=== PATIENT | female | born 1940 | race Caucasian/White ===

== ENCOUNTER 2019-04-01 15:54 | Inpatient (IN) ==
[2019-04-01 16:39] LABS: POC Blood Urea Nitrogen 19 mg/dl (8-23); POC CO2 26 mmol/L (22-30); POC Calcium, Ionized 1.31 mmol/L (1.16-1.32); POC Chloride 90 mmol/L (96-108); POC Creatinine 0.8 mg/dl (0.6-1.1); POC Glucose, Random 94 mg/dL (70-105); POC Potassium 4.6 mmol/L (3.3-5.1); POC Sodium 123 mmol/L (133-145)
[2019-04-01] MEDS ORDERED: ceFAZolin 2 GM in DEXTROSE 5% IN WATER 50 ML IV SCH (17:00)
[2019-04-01 17:17] LABS: Basophils # (Auto) 0 K/mcL (0.0-0.3); Basophils % (Auto) 0.1 % (0.0-2.0); Eosinophils # (Auto) 0 K/mcL (0.0-0.7); Eosinophils % (Auto) 0.2 % (0.0-7.0); Granulocytes % (Auto) 87.9 % (38.0-78.0); Hematocrit 38.5 % (36.0-48.0); Hemoglobin 12.4 g/dL (12.0-15.0); Lymphocytes # (Auto) 0.8 K/mcL (1.5-4.8); Mean Cell Volume 96.8 fL (80.0-100.0); Mean Corpuscular HGB Conc 32.1 g/dL (31.0-36.0); Mean Platelet Volume 7.3 fL (7.4-10.4); Monocytes % (Auto) 6.8 % (1.0-12.0); Platelet Count 455 K/mcL (140-440); RBC 3.98 M/mcL (4.00-5.20); Red Cell Distribution Width 24.1 % (11.5-14.5); WBC 15.2 K/mcL (4.5-11.0)
[2019-04-01] MEDS ORDERED: LIDOCAINE HCL/PF 100 MG/5 ML SYRINGE IV ONE (17:22)
[2019-04-01] MEDS ORDERED: SUCCINYLCHOLINE 20 MG/ML ML IV ONE (17:22)
[2019-04-01] MEDS ORDERED: fentaNYL 100 MCG/2 ML VIAL IV ONE ×2 (17:22→19:02)
[2019-04-01] MEDS ORDERED: DEXAMETHASONE 10 MG/ML VIAL IV ONE (17:22)
[2019-04-01] MEDS ORDERED: PROPOFOL 200 MG/20 ML VIAL IV ONE (17:22)
[2019-04-01] MEDS ORDERED: ONDANSETRON 4 MG/2 ML VIAL IV ONE (17:22)
[2019-04-01 17:35] LABS: Blood Urea Nitrogen 18 mg/dl (8-23); C-Reactive Protein 14.1 mg/dl (0.0-0.8); Calcium 10.2 mg/dl (8.6-10.4); Carbon Dioxide 24 mmol/L (22-30); Glomerular Filtration Rate 72; Glucose 93 mg/dL (70-105)
[2019-04-01 17:48] LABS: Chloride 87 mmol/L (96-108)
[2019-04-01] MEDS ORDERED: NALOXONE HCL 0.4 MG/ML VIAL IV PRN (18:12)
[2019-04-01] MEDS ORDERED: ACETAMINOPHEN 1,000 MG/100 ML BOTTLE IV ONE ×2 (18:12→19:06)
[2019-04-01] MEDS ORDERED: LACTATED RINGERS 250 ML IV PRN (18:12)
[2019-04-01] MEDS ORDERED: BENZOCAINE/MENTHOL 1 LOZENGE PO PRN ×2 (18:12→18:45)
[2019-04-01] MEDS ORDERED: FLUMAZENIL 0.1 MG/ML ML IV PRN (18:12)
[2019-04-01] MEDS ORDERED: diphenhydrAMINE 50 MG/ML VIAL IV PRN (18:12)
[2019-04-01] MEDS ORDERED: IPRATROPIUM/ALBUTEROL 3 ML AMPUL.NEB NEB PRN (18:12)
[2019-04-01] MEDS ORDERED: ONDANSETRON 4 MG/2 ML VIAL IV PRN ×3 (18:12→20:14)
[2019-04-01] MEDS ORDERED: PROMETHAZINE 25 MG/ML VIAL IV PRN (18:12)
[2019-04-01] MEDS ORDERED: MEPERIDINE 25 MG/ML SYRINGE IV PRN (18:12)
[2019-04-01] MEDS ORDERED: LACTATED RINGERS 1,000 ML IV SCH (18:15)
[2019-04-01] MEDS ORDERED: HYDROmorphone 2 MG/ML VIAL IV PRN ×3 (18:45→20:18)
--- NOTE | 2019-04-01 18:56 | Brief Operative Note ---
Date of procedure: 04/01/19 Pre-op diagnosis: R Forearm Volar Abcess, R Forearm Suppurative Flexor Tenosynovitis Post-op diagnosis: same Procedure: 1. Debridement and irrigation right forearm volar abcess 2. Debridement and irrigation with tenosynovectomy right wrist and forearm flex or tendons Grafts/Implants: No Anesthesia: GETA Findings: As above Complications: none Surgeon: Braulio Mcgraw Estimated blood loss (cc): 11 Tourniquet Time (Minutes): 53 Specimens Removed/Pathology: other (Aerobic and anaerobic cultures right wrist flexor tendon sheath) Condition: stable Disposition: PACU
[2019-04-01] MEDS: fentaNYL 100 MCG/2 ML VIAL IV PRN ×4 (19:02→19:25)
[2019-04-01] MEDS ORDERED: HYDROmorphone 2 MG/ML VIAL ONE (19:17)
[2019-04-01] MEDS: ceFAZolin 1 GM VIAL IV SCH (20:04)
[2019-04-01] MEDS ORDERED: POLYETHYLENE GLYCOL 3350 17 GM PACKET PO PRN (20:14)
[2019-04-01] MEDS ORDERED: MELATONIN 3 MG TABLET PO PRN (20:14)
[2019-04-01] MEDS ORDERED: ACETAMINOPHEN 650 MG/65 ML BOTTLE IV PRN (20:14)
[2019-04-01] MEDS ORDERED: POTASSIUM CHLORIDE 20 MEQ PACKET PO PRN (20:14)
[2019-04-01] MEDS ORDERED: MAGNESIUM SULFATE 2 GM/50 ML BAG IV PRN (20:14)
[2019-04-01] MEDS ORDERED: ACETAMINOPHEN 325 MG TABLET PO PRN (20:14)
[2019-04-01] MEDS ORDERED: VANCOMYCIN PER PHARMACY IV SCH (20:15)
--- NOTE | 2019-04-01 20:15 | Internal Medicine Consult Note ---
Medical - CN: HPI - Data of Consult Consult date: 04/01/19 Requesting physician: Braulio Mcgraw Primary Care Provider: Annette Moya MD - Consult Narrative Reason for consult: Management of med issues History of present illness: Ms. Velazquez is a 78 year old F with known history of atrial fibrillation currently on amiodarone/anticoagulation long history of DJD who underwent right wrist steroid injection around 10 to 12 days ago. Shortly thereafter patient started noticing increasing redness around the little finger and swelling around the wrist. She went to [facility] and was subsequently directed to Dr. Lorenz's office for further evaluation. She was thereafter seen by and with suspicion of tenosynovitis/septic arthritis patient underwent right forearm volar abscess debridement irrigation/tenosynovectomy right wrist and forearm flexor tendons. Postoperatively hospitalist service was consulted for management of medical issues including history of HTN/A. fib/anticoagulation. Patient was seen postop. Doing well. Minimal postoperative pain. Denies headache photophobia. She denies recent fever chills, diarrhea, skin rash or joint pain. Symptoms were progressive in nature with increasing pain swelling around the right wrist along with difficulty using hand with increasing pain on movement. Patient lives with her and 6 miles of [facility] Review of systems A 10 point review of system was performed and is negative except was discussed above CC: Braulio Mcgraw Medical - CN: PMH Medical history: Atrial fibrillation Hyperlipidemia Degenerative joint disease Hypothyroidism Hypertension GERD restless leg syndrome [place] chorioretinopathy Pertinent family history: Unremarkable Social history: No history of smoking Occasional alcohol and lives with her Works at the [employer] - CN: Meds Home Medications Medication Instructions Recorded Confirmed Type Apixaban [Eliquis] 5 mg PO BID 04/01/19 04/01/19 History Atorvastatin [Lipitor] 20 mg PO DAILY 04/01/19 04/01/19 History HYDROcodone/APAP 5/325MG [[place] 1 - 2 tab PO Q6HP PRN 04/01/19 04/01/19 History 5-325Mg] Hydrocodone/APAP 7.5/325Mg [[place] 1 - 2 tab PO Q4-6HP PRN 04/01/19 04/01/19 History 7.5-325Mg] Levothyroxine [Synthroid] 50 mcg PO DAILY 04/01/19 04/01/19 History Lisinopril [Zestril] 20 mg PO QHS 04/01/19 04/01/19 History Methotrexate Sodium [Methotrexate] 20 mg PO WEEKLY 04/01/19 04/01/19 History Pramipexole [Mirapex] 0.5 mg PO HS 04/01/19 04/01/19 History RX: Amiodarone HCl [Cordarone] 100 mg PO AC 04/01/19 04/01/19 History RX: Folic Acid 1 mg PO DAILY 04/01/19 04/01/19 History RX: Omeprazole 20 mg PO BID 04/01/19 04/01/19 History Spironolactone [Aldactone] 25 mg PO DAILY 04/01/19 04/01/19 History methylPREDNISolone [Medrol] 4 mg PO DAILY 04/01/19 04/01/19 History Allergies Allergy/AdvReac Type Severity Reaction Status Date / Time No Known Drug Allergies Allergy Verified 04/01/19 16:19 Medical - CN: Exam - Constitutional Vitals: Temp Pulse Resp BP Pulse Ox 98.1 F 64 24 H 163/79 96 04/01/19 19:48 04/01/19 19:48 04/01/19 19:48 04/01/19 19:48 04/01/19 19:48 General appearance: no acute distress Exam: Alert oriented Head normocephalic Oral cavity dry No ear nose discharge Eye movement symmetrical Neck lymphadenopathy S1-S2 occasionally iregular rhythm Diminished breath sounds bases Abdomen soft nontender Skin no suspicious lesion Psych alert cooperative Lower extremity no cyanosis clubbing no joint swelling, right upper extremity postoperative dressing Neuro nonfocal Medical - CN: Result - Labs CBC & Chem 7: 04/02/19 04:35 04/02/19 04:35 Labs: Short CBC 04/01/19 Range/Units 16:46 WBC 15.2 H (4.5-11.0) K/mcL Hgb 12.4 (12.0-15.0) g/dL Hct 38.5 (36.0-48.0) % Plt Count 455 H (140-440) K/mcL BMP 04/01/19 16:46 Sodium 122 L Potassium 4.8 Chloride 87 L Carbon Dioxide 24 BUN 18 Creatinine 0.8 Glucose 93 Calcium 10.2 Medical - CN: A/P (1) Sepsis Status: Acute Assessment and plan: * Sepsis secondary to tenosynovitis with WBC >15,000. Await intraoperative cultures. Continue antibiotic coverage. * Septic tenosynovitis status post irrigation debridement. 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 Amanda ry 4 sodium check/urine and serum osmolality. If consistent with SIADH will start free water restriction * Hypertension restart lisinopril/spironolactone * Hypothyroidism continue thyroxine * Pain management on as needed opioid * Atrial fibrillation continue amiodarone/apixaban for CVA prophylaxis * Hyperlipidemia's on statin * Restless leg syndrome continue pramipexole * GERD continue PPI * Chorioretinopathy on methotrexate at home * Full code * Prophylaxis apixaban plan * Restart prior home medications * Extend antibiotic coverage with vancomycin until cultures resulted * Every 6 sodium checks * Urine and serum osmolarity * Anticoagulation with apixaban * Overall high complexity consult
[2019-04-01] MEDS ORDERED: HYDROCODONE/APAP 7.5/325MG TABLET PO PRN (20:18)
[2019-04-01] MEDS ORDERED: METHOTREXATE SODIUM 2.5 MG TABLET PO SCH (20:30)
[2019-04-01] MEDS: SENNOSIDES/DOCUSATE SODIUM 1 TAB TABLET PO SCH (21:20)
[2019-04-01] MEDS: DOCUSATE SODIUM 100 MG CAPSULE PO SCH (21:20)
[2019-04-01] MEDS: 0.9 % SODIUM CHLORIDE 1,000 ML IV SCH (21:23)
[2019-04-01] MEDS: PRAMIPEXOLE 0.25 MG TABLET PO SCH (21:24)
[2019-04-01] MEDS: LISINOPRIL 20 MG TABLET PO SCH (21:24)
[2019-04-01] MEDS: VANCOMYCIN 1,000 MG in 0.9 % SODIUM CHLORIDE 250 ML IV SCH (21:24)
[2019-04-01] MEDS: 0.9 % SODIUM CHLORIDE 10 ML SYRINGE IV SCH (21:24)
[2019-04-01] MEDS: KETOROLAC 15 MG/ML VIAL IV PRN (21:32)
[2019-04-01] MEDS ORDERED: 0.9 % SODIUM CHLORIDE 10 ML SYRINGE IV SCH (22:00)
[2019-04-02] MEDS: HYDROCODONE/APAP 7.5/325MG TABLET PO PRN ×4 (00:23→19:15)
[2019-04-02] MEDS: ceFAZolin 1 GM VIAL IV SCH (03:58)
[2019-04-02] MEDS: 0.9 % SODIUM CHLORIDE 10 ML SYRINGE IV SCH ×3 (04:01→20:39)
[2019-04-02 05:41] LABS: Hematocrit 37.9 % (36.0-48.0); Hemoglobin 12.3 g/dL (12.0-15.0); Mean Cell Volume 97.1 fL (80.0-100.0); Mean Corpuscular HGB Conc 32.4 g/dL (31.0-36.0); Mean Platelet Volume 7.3 fL (7.4-10.4); Platelet Count 438 K/mcL (140-440); Red Cell Distribution Width 23.7 % (11.5-14.5); WBC 15.4 K/mcL (4.5-11.0)
[2019-04-02 06:39] LABS: Bilirubin,Direct < 0.2 mg/dL (0.0-0.3)
[2019-04-02 06:41] LABS: ALT/SGPT 22 U/l (0-40); AST/SGOT 19 U/l (0-37); Albumin 2.7 gm/dL (3.2-5.2); Albumin/Globulin Ratio 0.8 (1.0-2.3); Alkaline Phosphatase 94 U/L (39-117); Bilirubin,Total 0.3 mg/dL (0.0-1.0); Blood Urea Nitrogen 18 mg/dl (8-23); C-Reactive Protein 19.3 mg/dl (0.0-0.8); Carbon Dioxide 20 mmol/L (22-30); Chloride 91 mmol/L (96-108); Globulin 3.3 gm/dL (2.2-3.7); Glomerular Filtration Rate 72; Glucose 122 mg/dL (70-105); Lactate Dehydrogenase 210 U/L (94-250); Phosphorous 3.7 mg/dL (2.7-4.5); Triglycerides 46 mg/dl (<150); Uric Acid 3.1 mg/dL (2.5-8.0)
[2019-04-02 06:46] LABS: Anisocytosis 2+ (NONE SEEN); Lymphocytes % 4 % (15-49); Monocytes % (Manual) 1 % (1-12); Platelet Estimate NORMAL (NORMAL); RBC Morphology ABNORM (NORMAL); Segmented Neutrophils % 95 % (38-78)
[2019-04-02] MEDS: LEVOTHYROXINE 50 MCG TABLET PO SCH (07:27)
[2019-04-02] MEDS: AMIODARONE HCL 200 MG TABLET PO SCH ×3 (07:27→16:52)
[2019-04-02] MEDS: OMEPRAZOLE 20 MG CAPSULE PO SCH ×2 (07:27→16:52)
--- NOTE | 2019-04-02 07:51 | Operative Note ---
DATE OF OPERATION: 04/01/2019 PREOPERATIVE DIAGNOSES: 1. Right volar wrist and forearm abscess. 2. Right wrist and forearm suppurative flexor tenosynovitis. POSTOPERATIVE DIAGNOSES: 1. Right volar wrist and forearm abscess. 2. Right wrist and forearm suppurative flexor tenosynovitis. PROCEDURE: 1. Debridement and irrigation of the right volar forearm and wrist abscess. 2. Debridement and irrigation with tenosynovectomy of the right wrist and forearm flexor tendons. PRIMARY SURGEON: Braulio Mcgraw MD ANESTHESIA: General with endotracheal tube. ESTIMATED BLOOD LOSS: 11 mL DRAINS: Include 7 mm JERZY drain placed deep to the flexor tendon sheath. COMPLICATIONS: None. FINAL SPONGE COUNT: Correct. TOTAL TOURNIQUET TIME: 53 minutes. SPECIMENS: Aerobic and anaerobic cultures of the volar wrist and forearm abscess. INDICATION: The patient is a 78-year-old right hand white female with worsening pain, swelling and redness on the undersurface of her right wrist and forearm developing and worsening over the last week with us now some fevers and limited range of motion. Her physical examination demonstrates an edematous forearm and wrist with induration and erythema extending along the flexor carpi radialis tendon sheath with some bogginess and fluctuant in the volar wrist and forearm with limited range of motion. Her MRI a week ago demonstrated evidence of some synovitis around the flexor tendons, but no abscess at that time. The patient and family verbalized that they understood the proposed procedure with the associated risks and benefits and consented. DESCRIPTION OF PROCEDURE: The patient was taken to the operating room suite and placed supine on the operating room table. Next endotracheal tube anesthesia was attained. After adequate anesthesia was verified, a tourniquet was placed on the proximal aspect of her right arm and the right upper extremity was then sterilely prepped and draped in the usual fashion. The old carpal tunnel incision was identified and marked as it extended proximally in line with the flexor carpi radialis tendon sheath. After this demonstrated to be in good position, the right upper extremity was exsanguinated and the tourniquet was inflated to 280 mmHg. Next, the aforemarked incision was made beginning at the mid to proximal forearm extending distally in line with the flexor carpi ulnaris tendon sheath to the volar forearm incision. The volar wrist incision was then incised obliquely to the level of the volar wrist crease and then over the ulnar aspect of the hyperthenar crease, sharp dissection of the skin and subcutaneous tissues. Subcutaneous tissues were bluntly divided. Hemostasis was obtained with electrocautery. Blunt dissection was taken down until the volar forearm and volar wrist were identified. Next, the scar tissue was opened and there was seen to be significant purulence that drained from the wrist and forearm wound. At this time, aerobic and anaerobic cultures were obtained. Next, full-thickness flaps were developed in a medial lateral direction through the entire length of the incision. The volar forearm fascia was incised. There was seen to be significant suppurative flexor tenosynovitis involving the flexor tendons. At this time, the median nerve was identified. This was meticulously dissected from proximal to distal, removing all scar tissue and completely mobilizing the nerve. The palmar cutaneous branch was seen to be intact. The recurrent median nerve was intact as well as the digital nerves to the fingers. The ulnar artery and nerve were identified distally and preserved as well. At this time, a complete tenosynovectomy was completed through the whole wrist and forearm of all the flexor tendons to include the flexor carpi radialis and flexor carpi ulnaris and the flexor tendons of the common and superficialis. After this was completed, copious irrigation with a liter of sterile saline solution, repeat debridement, repeat irrigation with a second liter of sterile saline solution, repeat debridement, and debridement was taken up into the palmar aspect of the hand and to the more proximal forearm. Again, another irrigation with a third liter of sterile saline solution, repeat debridement, and a final liter of sterile saline solution and a final debridement. At this time, there was seen to be complete removal of all necrotic and/or foreign material. There was seen to be removal of all purulent material as well up into the forearm and into the palm of the hand. The median nerve was seen to be intact. All flexor tendons were seen to be intact to the fingers, thumb and the wrist. The radial and ulnar arteries were intact. After the final irrigation, a 7 mm JERZY drain was then placed deep to the flexor tendons were brought out over the volar forearm after a krupa incision was made. Next, the skin was then closed with 3-0 nylon in interrupted sutures. The tourniquet was released. The wrist, hand, and fingers were seen to pink up very nicely. Sterile Xeroform was placed over the drain site and the incision site. A bulky forearm, wrist, and hand dressing were applied and a volar splint was applied. The patient was then awakened and transferred to the [facility] and to the recovery room in stable condition. The patient tolerated the procedure well. Estimated blood loss was 11 mL. Drains included a 7 mm JERZY drain on self-suction. Complications were none. Final sponge count was correct. There was a total tourniquet time of 53 minutes. SPECIMENS: Include aerobic/anaerobic cultures of the volar forearm and wrist mass. SRJose M:marii Job ID: [id number] Doc ID: [id number] Braulio Mcgraw MD
[2019-04-02] MEDS: APIXABAN 5 MG TABLET PO SCH ×2 (08:04→20:39)
[2019-04-02] MEDS: DOCUSATE SODIUM 100 MG CAPSULE PO SCH ×2 (08:04→20:39)
[2019-04-02] MEDS: ATORVASTATIN 20 MG TABLET PO SCH (08:04)
[2019-04-02] MEDS: FOLIC ACID 1 MG TABLET PO SCH (08:05)
[2019-04-02] MEDS: MULTIVIT,THER IRON,CA,FA & MIN 1 TABLET PO SCH (08:05)
[2019-04-02] MEDS: VANCOMYCIN 1,000 MG in 0.9 % SODIUM CHLORIDE 250 ML IV SCH (08:06)
[2019-04-02] MEDS ORDERED: SPIRONOLACTONE 25 MG TABLET PO SCH (09:00)
--- NOTE | 2019-04-02 10:11 | Internal Med Progress Note ---
Medical - PN: Subj Patient information: Note initiated : 04/02/19 at 10:07 am Service Date, if different from initiated Date: [] Patient: Shannon Velazquez a 78 y/o F admitted on 04/01/19 for Right I&D of Forearm Abscess and Flexor Radical . Chief Complaint: [] Interval history: Ms. Velazquez is a 78 year old F with known history of atrial fibrillation currently on amiodarone/anticoagulation long history of DJD who underwent right wrist steroid injection around 10 to 12 days ago. Shortly thereafter patient started noticing increasing redness around the little finger and swelling around the wrist. [facility] and was subsequently directed to Dr. Lorenz's office for further evaluation. She was thereafter seen by and with suspicion of tenosynovitis/septic arthritis patient underwent right forearm volar abscess debridement irrigation/tenosynovectomy right wrist and forearm flexor tendons. Postoperatively hospitalist service was consulted for management of medical issues including history of HTN/A. fib/anticoagulation. Patient was seen postop. Doing well. Minimal postoperative pain. Denies headache photophobia. She denies recent fever chills, diarrhea, skin rash or joint pain. Symptoms were progressive in nature with increasing pain swelling around the right wrist along with difficulty using hand with increasing pain on movement. Patient lives with her and 6 miles of [facility] 04/02-patient doing well. Sodium at 123. Pain much improved. White count 15,000. Cultures pending so far. Urine osmolarity pending. Hold spironolactone. Continue wound care as per orthopedics. Continue PT OT/nutrition support - Constitutional Vitals: Vital Signs Temp Pulse Resp BP Pulse Ox 98.9 F 66 18 139/74 98 04/02/19 08:00 04/02/19 08:00 04/02/19 08:00 04/02/19 08:00 04/02/19 08:00 Period Temp Pulse Resp BP Sys/Keenan Pulse Ox Last 24 Hr 97.7 F-98.9 F 61-78 16-28 120-165/54-98 95-99 Intake and Output 04/01/19 04/02/19 04/02/19 21:59 05:59 13:59 Intake Total 1350 420 400 Output Total 11 1005 650 Balance 1339 -585 -250 Weight 181 lb 12.8 oz Intake & Output: Intake & Output 04/01/19 04/02/19 04/02/19 21:59 05:59 13:59 Intake Total 1350 420 400 Output Total 11 1005 650 Balance 7989 -915 -250 Weight 181 lb 12.8 oz Intake: IV 150 250 Vancomycin 1,000 mg In Sodium 250 Chloride 0.9% 250 ml @ 250 mls/ hr IV Q12H [facility] Rx#:[id number] Ancef 2 gm In Dextrose 5% in 50 Water 50 ml @ 100 mls/hr IV PREOP [facility] Rx#:[id number] Oral 170 400 IV - Manual Only 1200 Output: Drainage 5 Right Hand JERZY Drain 5 Urine Catheter Amount 500 Void Amount 500 650 Estimated Blood Loss 11 Other: Meal Nourishment/Supplement Breakfast Percent of Meal Consumed 100% 100% Feeding Ability Independent Assist with Tray Set Up Urine Appearance Clear Urine Color Dark Yellow Urine Odor Normal General appearance: no acute distress Exam: Alert oriented nonlabored breathing Nondistended abdomen Postoperative dressing No anxiety Medical - PN: Obj Da - Labs CBC & Chem 7: 04/02/19 04:35 04/02/19 04:35 Labs: Abnormal Lab Results 04/02/19 04/02/19 04/02/19 04:35 04:35 00:05 WBC 15.4 H RBC 3.90 L RDW 23.7 H Plt Count MPV 7.3 L Gran % Lymph % (Auto) Gran # Lymph # (Auto) Grant # (Auto) Seg Neutrophils % 95 H Lymphocytes % 4 L RBC Morphology Abnorm A Anisocytosis 2+ A POC Sodium Sodium 123 L 121 L Potassium 5.4 H POC Chloride Chloride 91 L Carbon Dioxide 20 L Glucose 122 H Osmolality GGT 87 H C-Reactive Protein 19.3 H Albumin 2.7 L Albumin/Globulin Ratio 0.8 L 04/01/19 04/01/19 04/01/19 16:46 16:46 16:46 WBC 15.2 H RBC 3.98 L RDW 24.1 H Plt Count 455 H MPV 7.3 L Gran % 87.9 H Lymph % (Auto) 5.0 L Gran # 13.3 H Lymph # (Auto) 0.8 L Grant # (Auto) 1.0 H Seg Neutrophils % Lymphocytes % RBC Morphology Anisocytosis POC Sodium 123 L Sodium 122 L Potassium POC Chloride 90 L Chloride 87 L Carbon Dioxide Glucose Osmolality 263 L GGT C-Reactive Protein 14.1 H Albumin Albumin/Globulin Ratio Meds: Medications Acetaminophen (Tylenol) 650 mg PO Q4-6HP PRN; Protocol PRN Reason: Per Pain Protocol/Fever > 101 Hydrocodone Bitart/Acetaminophen ([place] 7.5/325mg) 0 tab PO Q4HP PRN; Protocol PRN Reason: Per Pain Protocol Last Admin: 04/02/19 08:05 Dose: 1 tab Documented by: Amiodarone HCl (Cordarone) 100 mg PO AC [facility] Last Admin: 04/02/19 07:27 Dose: 100 mg Documented by: Apixaban (Eliquis) 5 mg PO BID [facility] Last Admin: 04/02/19 08:04 Dose: 5 mg Documented by: Atorvastatin Calcium (Lipitor) 20 mg PO DAILY [facility] Last Admin: 04/02/19 08:04 Dose: 20 mg Documented by: Docusate Sodium (Colace) 100 mg PO BID [facility] Last Admin: 04/02/19 08:04 Dose: 100 mg Documented by: Folic Acid (Folic Acid) 1 mg PO DAILY [facility] Last Admin: 04/02/19 08:05 Dose: 1 mg Documented by: Hydromorphone HCl (Dilaudid) 0 mg IV Q2HP PRN; Protocol PRN Reason: Per Pain Protocol Sodium Chloride (Sodium Chloride 0.9%) 1,000 mls @ 50 mls/hr IV .Q20H [facility] Stop: 04/04/19 08:14 Last Admin: 04/01/19 21:23 Dose: 50 mls/hr Documented by: Acetaminophen (Ofirmev) 650 mg in 65 mls @ 130 mls/hr IV Q6HP PRN; Protocol PRN Reason: Per Pain Protocol/Fever > 101 Magnesium Sulfate (Magnesium Sulfate) 2 gm in 50 mls @ 50 mls/hr IV UD PRN PRN Reason: MG = or < 1.7 Vancomycin HCl 1,000 mg/ (Sodium Chloride) 250 mls @ 250 mls/hr IV Q12H [facility] Last Admin: 04/02/19 08:06 Dose: 250 mls/hr Documented by: Iron Carb/Multivit/[place]/Folic Acid (Multivitamin W/Minerals) 1 tab PO DAILY [facility] Last Admin: 04/02/19 08:05 Dose: 1 tab Documented by: Ketorolac Tromethamine (Toradol) 15 mg IV BIDP PRN PRN Reason: Per Pain Protocol Last Admin: 04/01/19 21:32 Dose: 15 mg Documented by: Levothyroxine Sodium (Synthroid) 50 mcg PO ACB [facility] Last Admin: 04/02/19 07:27 Dose: 50 mcg Documented by: Lisinopril (Zestril) 20 mg PO QHS [facility] Last Admin: 04/01/19 21:24 Dose: Not Given Documented by: Melatonin (Melatonin 3mg Tablet) 3 mg PO HSP PRN PRN Reason: Insomnia Omeprazole (Prilosec) 20 mg PO BIDAC [facility] Last Admin: 04/02/19 07:27 Dose: 20 mg Documented by: Ondansetron HCl (Zofran) 4 mg IV Q4-6HP PRN; Protocol PRN Reason: Nausea And Vomiting Polyethylene Glycol (Miralax) 17 gm PO DAILYP PRN PRN Reason: Constipation Potassium Chloride (Klor-Con) 40 meq PO DAILYP PRN PRN Reason: K+ < 3.5 Pramipexole Dihydrochloride (Mirapex) 0.5 mg PO [facility] Last Admin: 04/01/19 21:24 Dose: Not Given Documented by: Senna/Docusate Sodium (Senna Plus Tablet) 1 tab PO [facility] Last Admin: 04/01/19 21:20 Dose: Not Given Documented by: Sodium Chloride (Saline Flush) 10 ml IV Q8 [facility] Last Admin: 04/02/19 04:01 Dose: Not Given Documented by: Spironolactone (Aldactone) 25 mg PO DAILY [facility] Last Admin: 04/02/19 08:05 Dose: 25 mg Documented by: Throat Lozenges (Cepacol) 1 lozenge PO PRN PRN PRN Reason: Sore Throat Vancomycin HCl (Vancomycin Per Pharmacy) 1 order IV [facility]; Protocol Medical - PN: A/P - Time Spent With Patient Total time spent is greater than 50% in coordination of care (as documented) at patient's floor/unit and/or counseling patient: 25 - 35 minutes (1) Sepsis Status: Acute Assessment and plan: * Sepsis secondary to tenosynovitis with WBC >15,000. Await intraoperative cultures. Continue antibiotic coverage and de-escalate based on sensitivities. * Septic tenosynovitis status post Irrigation and debridement . Continue postop care per orthopedics * Hyponatremia-123. Likely secondary to pain mediated SIADH/spironolactone use. on 4 hourly sodium check/await urine and serum osmolality. If consistent with SIADH will initiate free water restriction * Hypertension continue lisinopril * Hypothyroidism continue thyroxine * Pain management on as needed opioid * Atrial fibrillation continue amiodarone/apixaban for CVA prophylaxis * Hyperlipidemia's on statin * Restless leg syndrome continue pramipexole * GERD continue PPI * Chorioretinopathy on methotrexate at home * Full code * Prophylaxis apixaban plan * Postoperative care per orthopedics * De-escalate antibiotics based on culture sensitivities d * Hyponatremia work-up * Anticoagulation with apixaban * PT OT/nutrition support * Discharge planning Current Visit: Yes Medical - PN: Qual - VTE Deep Vein Thrombosis/Pulmonary Embolism Present on Admission: No
[2019-04-02] MEDS: 0.9 % SODIUM CHLORIDE 1,000 ML IV SCH ×2 (10:34→16:53)
[2019-04-02 13:09] LABS: Appearance,Urine CLEAR; Bacteria,Urine 0 /hpf (0); Bilirubin,Urine NEG (NEG); Color,Urine STRAW; Culture Indicated,Urine NO; Glucose,Urine (UA) NEGATIVE (NEG); Ketones,Urine NEG (NEG); Leukocyte Esterase,Urine NEG /uL (NEG); Nitrate,Urine NEG (NEG); Protein,Urine NEG (NEG); Specific Gravity,Urine 1.005 (1.000-1.035); Urine Blood NEG mg/dL (<0.03); Urine RBC 1 /hpf (0-1); Urine Squamous Epithelial Cell < 1 /hpf (0-4); Urine WBC < 1 /hpf (0-4); Urobilinogen,Urine NEG (NEG)
--- NOTE | 2019-04-02 15:02 | Orthopedic Progress Note ---
Subjective Patient information: Note initiated : 04/02/19 at 2:59 pm Service Date, if different from initiated Date: [] Patient: Shannon Velazquez 78 y/o F admitted on 04/01/19 for Right I&D of Forearm Abscess and Flexor Radical . Chief Complaint: [] Principal diagnosis: Right Forearm Abscess, Right Forearm Suppurative Flexor Tenosynovitis Interval history: Patient awake and responsive, taking po well with good pain control. No fevers or chills Objective Vital signs: Vital Signs Temp Pulse Pulse Resp BP Pulse Ox 04/02/19 12:12 78 04/02/19 11:36 98.5 F 68 16 123/73 94 04/02/19 08:00 98.9 F 66 18 139/74 98 04/02/19 07:34 78 18 95 04/02/19 06:50 75 04/02/19 03:57 97.7 F 67 22 130/74 97 04/01/19 22:33 98.6 F 61 22 120/66 97 04/01/19 21:33 65 130/68 97 04/01/19 21:03 65 127/68 96 04/01/19 20:33 61 131/66 97 04/01/19 20:18 65 151/63 97 04/01/19 20:03 62 130/70 97 04/01/19 19:48 98.1 F 64 24 H 163/79 96 04/01/19 19:38 98.9 F 64 18 157/73 99 04/01/19 19:30 66 20 165/84 99 04/01/19 19:19 72 22 151/86 99 04/01/19 19:15 67 22 160/98 99 04/01/19 19:10 65 25 H 152/87 98 04/01/19 19:04 69 28 H 141/83 96 04/01/19 18:55 67 22 147/79 96 04/01/19 18:49 98.1 F 67 19 147/79 96 04/01/19 16:33 98.8 F 65 16 138/54 96 Intake and Output 04/02/19 04/02/19 04/02/19 05:59 13:59 21:59 Intake Total 420 2100 Output Total 1005 1200 800 Balance -585 900 -800 Intake: IV 250 1250 Sodium Chloride 0.9% 1,000 ml @ 1000 50 mls/hr IV .Q20H [facility] Rx#: [id number] Vancomycin 1,000 mg In Sodium 250 250 Chloride 0.9% 250 ml @ 250 mls/ hr IV Q12H [facility] Rx#:[id number] Oral 170 850 Output: Drainage 5 Right Hand JERZY Drain 5 Urine Catheter Amount 500 Void Amount 500 1200 800 Other: Meal Nourishment/Supplement Breakfast Percent of Meal Consumed 100% 100% Feeding Ability Independent Assist with Tray Set Up Urine Appearance Clear Clear Urine Color Bright Yellow Bright Yellow Urine Odor Normal Normal Weight 181 lb 12.8 oz Patient Weight 04/03/19 05:59 Weight 181 lb 12.8 oz Intake & Output: Intake & Output 04/02/19 04/02/19 04/02/19 05:59 13:59 21:59 Intake Total 420 2100 Output Total 1005 1200 800 Balance -585 900 -800 Weight 181 lb 12.8 oz Intake: IV 250 1250 Sodium Chloride 0.9% 1,000 ml @ 1000 50 mls/hr IV .Q20H [facility] Rx#: [id number] Vancomycin 1,000 mg In Sodium 250 250 Chloride 0.9% 250 ml @ 250 mls/ hr IV Q12H [facility] Rx#:[id number] Oral 170 850 Output: Drainage 5 Right Hand JERZY Drain 5 Urine Catheter Amount 500 Void Amount 500 1200 800 Other: Meal Nourishment/Supplement Breakfast Percent of Meal Consumed 100% 100% Feeding Ability Independent Assist with Tray Set Up Urine Appearance Clear Clear Urine Color Bright Yellow Bright Yellow Urine Odor Normal Normal Dressing: Yes clean, Yes dry, Yes intact, Yes splint in place Weight bearing status: full Neurological exam IM: Yes oriented X3, Yes neurovascular intact - Labs CBC & BMP: 04/02/19 04:35 04/02/19 12:15 Labs: 04/02/19 04/01/19 04:35 16:46 Hgb 12.3 12.4 Hct 37.9 38.5 Assessment and Plan - Narrative A/P Narrative: Assessment: The patient is POD#1 s/p I&D right volar forearm abscess and flexor synovectomy doing well, good pain control. Plan: 1. Continue IV antibiotics as per Hospitalist 2. Continue JERZY drain management 3. Up as tolerated 4. Plan on JERZY drain removal 04/04/19
--- NOTE | 2019-04-02 17:03 | Infectious Disease Consult ---
History of Present Illness Patient information: Note initiated : 04/02/19 at 4:58 pm Service Date, if different from initiated Date: [] Patient: Shannon Velazquez 78 y/o F admitted on 04/01/19 for Right I&D of Forearm Abscess and Flexor Radical . Chief Complaint: [] Consult date: 04/02/19 Requesting Physician: Braulio Mcgraw Reason for Consult: right wrist and forearm abscess Chief complaint: my right hand hurts History of present illness: 78 year old lady (who works in a local [employer]) with PMHx of: - A fib, on amiodarone/anticoagulation - osteoarthritis - restless leg syndrome Pt underwent a steroid injection in right wrist about 2 weeks ago. About 4 days after she noticed acute onset of redness and swelling in right wrist. She saw Dr Mcgraw after 2 days of these symptoms, and underwent MRI which showed tenosynovitis without a drainable abscess. She was prescribed NSAIDs and medrol dose pack. Her symptoms didnot improve, she developed fevers, extension of redness and pain into forearm and arm. She went to [facility] and was subsequently directed to Dr. Lorenz's office for further evaluation. She was seen by Dr. Mcgraw on 04/01 and asked to come to [facility] for surgical debridement. She was afebrile at admission. She underwent right forearm volar abscess debridement irrigation/tenosynovectomy of right wrist and forearm flexor tendons.Op Cx sent. Her WBC was 15.2 at adm. She was started on IV Vanc. Operative Cx sent grew Staph aureus, with sensi pending. At time of visit she confirmed above Hx. Rated pain at 5/10 in the right wrist. Denied any n/v/diarrhea. Added that after she recieved steroid injection, she went back to work at local [employer]. Overall feels better with resolution of pain in right armpit and arm. Review of Systems All systems PM: reviewed and no additional remarkable complaints except as stated Constitutional: as per HPI Past History Past family history: no sick contacts Past social history: lives with her in [place], [place]. Doesnot smoke Medications and Allergies Home Medications Medication Instructions Recorded Confirmed Type Amiodarone HCl [Cordarone] 100 mg PO HS 04/01/19 04/02/19 History Apixaban [Eliquis] 5 mg PO BID 04/01/19 04/01/19 History Atorvastatin [Lipitor] 20 mg PO DAILY 04/01/19 04/01/19 History Folic Acid 1 mg PO DAILY 04/01/19 04/01/19 History HYDROcodone/APAP 5/325MG [[place] 1 - 2 tab PO Q6HP PRN 04/01/19 04/01/19 History 5-325Mg] Hydrocodone/APAP 7.5/325Mg [[place] 1 - 2 tab PO Q4-6HP PRN 04/01/19 04/01/19 History 7.5-325Mg] Levothyroxine [Synthroid] 50 mcg PO DAILY 04/01/19 04/01/19 History Lisinopril [Zestril] 20 mg PO QHS 04/01/19 04/01/19 History Methotrexate Sodium [Methotrexate] 20 mg PO WEEKLY 04/01/19 04/01/19 History Omeprazole 20 mg PO BID 04/01/19 04/01/19 History Pramipexole [Mirapex] 0.5 mg PO HS 04/01/19 04/01/19 History Spironolactone [Aldactone] 25 mg PO DAILY 04/01/19 04/01/19 History methylPREDNISolone [Medrol] 4 mg PO DAILY 04/01/19 04/01/19 History Allergies Allergy/AdvReac Type Severity Reaction Status Date / Time No Known Drug Allergies Allergy Verified 04/01/19 16:19 Physical Examination Vital signs: Temp Pulse Resp BP Pulse Ox 37.2 C 67 16 112/65 95 04/02/19 15:29 04/02/19 15:29 04/02/19 15:29 04/02/19 15:29 04/02/19 15:29 General appearance: no acute distress Eyes pulmonary: nonicteric ENT: oropharynx moist, other (no thrush) Auscultation: bilateral: clear Cardiovascular: other (s1 s2 normal, no m/r/g) Gastrointestinal: normoactive bowel sounds, non-tender Extremities: other (swelling of fingers of right hand. The wrist and forearm is under surgical dressing. No discoloration of fingers, slight stiffness with movement. No pain at elbow joint.) Results - Laboratory Findings CBC and BMP: 04/03/19 04:35 04/03/19 04:35 Abnormal lab findings: Abnormal Labs 04/01/19 04/01/19 04/01/19 16:46 16:46 16:46 WBC 15.2 H RBC 3.98 L RDW 24.1 H Plt Count 455 H MPV 7.3 L Gran % 87.9 H Lymph % (Auto) 5.0 L Gran # 13.3 H Lymph # (Auto) 0.8 L [place] # (Auto) 1.0 H Seg Neutrophils % Lymphocytes % RBC Morphology Anisocytosis POC Sodium 123 L Sodium 122 L Potassium POC Chloride 90 L Chloride 87 L Carbon Dioxide Glucose Osmolality 263 L GGT C-Reactive Protein 14.1 H Albumin Albumin/Globulin Ratio 04/02/19 04/02/19 04/02/19 00:05 04:35 04:35 WBC 15.4 H RBC 3.90 L RDW 23.7 H Plt Count MPV 7.3 L Gran % Lymph % (Auto) Gran # Lymph # (Auto) [place] # (Auto) Seg Neutrophils % 95 H Lymphocytes % 4 L RBC Morphology Abnorm A Anisocytosis 2+ A POC Sodium Sodium 121 L 123 L Potassium 5.4 H POC Chloride Chloride 91 L Carbon Dioxide 20 L Glucose 122 H Osmolality GGT 87 H C-Reactive Protein 19.3 H Albumin 2.7 L Albumin/Globulin Ratio 0.8 L 04/02/19 04/02/19 08:18 12:15 WBC RBC RDW Plt Count MPV Gran % Lymph % (Auto) Gran # Lymph # (Auto) [place] # (Auto) Seg Neutrophils % Lymphocytes % RBC Morphology Anisocytosis POC Sodium Sodium 125 L 130 L Potassium POC Chloride Chloride Carbon Dioxide Glucose Osmolality GGT C-Reactive Protein Albumin Albumin/Globulin Ratio Assessment and Plan - Narrative A/P Narrative: A: 1. Rt forearm abscess with extension to flexor tendons causing tenosynovitis: POD 1 after "Debridement and irrigation of the right volar forearm and wrist abscess, Debridement and irrigation with tenosynovectomy of the right wrist and forearm flexor tendons". - wound Cx growing Staph aureus, sensi pending - s/p 2 days of IV Vanc - no sepsis - clinically improving Recommendations: - Stop IV Vanc - Start PO Linezolid 600 mg PO q12 hrs - anticipate at least 2 weeks of therapy with ID clinic f/u - send MRSA nasal PCR will follow Tucker Hawkins MD Infectious diseases
[2019-04-02] MEDS: KETOROLAC 15 MG/ML VIAL IV PRN (19:37)
[2019-04-02] MEDS: SENNOSIDES/DOCUSATE SODIUM 1 TAB TABLET PO SCH (20:39)
[2019-04-02] MEDS: PRAMIPEXOLE 0.25 MG TABLET PO SCH (20:39)
[2019-04-02] MEDS: LINEZOLID 600 MG TABLET PO SCH (20:39)
[2019-04-02] MEDS: LISINOPRIL 20 MG TABLET PO SCH (20:39)
[2019-04-03] MEDS: HYDROCODONE/APAP 7.5/325MG TABLET PO PRN ×5 (02:09→23:06)
[2019-04-03] MEDS: 0.9 % SODIUM CHLORIDE 10 ML SYRINGE IV SCH ×3 (04:42→21:10)
[2019-04-03 05:31] LABS: Hematocrit 31.9 % (36.0-48.0); Hemoglobin 10.4 g/dL (12.0-15.0); Mean Cell Volume 96.4 fL (80.0-100.0); Mean Corpuscular HGB Conc 32.6 g/dL (31.0-36.0); Mean Platelet Volume 7.2 fL (7.4-10.4); Platelet Count 414 K/mcL (140-440); RBC 3.31 M/mcL (4.00-5.20); Red Cell Distribution Width 23.9 % (11.5-14.5); WBC 13.3 K/mcL (4.5-11.0)
[2019-04-03 05:45] LABS: ALT/SGPT 15 U/l (0-40); AST/SGOT 15 U/l (0-37); Albumin 2.4 gm/dL (3.2-5.2); Albumin/Globulin Ratio 0.9 (1.0-2.3); Alkaline Phosphatase 70 U/L (39-117); Bilirubin,Direct < 0.2 mg/dL (0.0-0.3); Bilirubin,Total 0.3 mg/dL (0.0-1.0); Blood Urea Nitrogen 23 mg/dl (8-23); Calcium 9.4 mg/dl (8.6-10.4); Carbon Dioxide 21 mmol/L (22-30); Globulin 2.8 gm/dL (2.2-3.7); Glomerular Filtration Rate 84; Glucose 99 mg/dL (70-105); Lactate Dehydrogenase 142 U/L (94-250); Triglycerides 52 mg/dl (<150); Uric Acid 3.4 mg/dL (2.5-8.0)
[2019-04-03 05:47] LABS: Chloride 94 mmol/L (96-108); Phosphorous 2.5 mg/dL (2.7-4.5)
[2019-04-03] MEDS: 0.9 % SODIUM CHLORIDE 1,000 ML IV SCH (06:54)
[2019-04-03 06:55] LABS: Anisocytosis 2+ (NONE SEEN); Lymphocytes % 6 % (15-49); Monocytes % (Manual) 2 % (1-12); Myelocytes % 2 % (0-0); Ovalocytes 1+ (NONE SEEN); Platelet Estimate NORMAL (NORMAL); RBC Morphology ABNORM (NORMAL); Segmented Neutrophils % 90 % (38-78)
[2019-04-03] MEDS: LEVOTHYROXINE 50 MCG TABLET PO SCH (06:57)
[2019-04-03] MEDS: OMEPRAZOLE 20 MG CAPSULE PO SCH ×2 (06:57→16:53)
[2019-04-03] MEDS: AMIODARONE HCL 200 MG TABLET PO SCH (06:57)
[2019-04-03] MEDS: DOCUSATE SODIUM 100 MG CAPSULE PO SCH ×2 (08:56→21:06)
[2019-04-03] MEDS: ATORVASTATIN 20 MG TABLET PO SCH (08:56)
[2019-04-03] MEDS: MULTIVIT,THER IRON,CA,FA & MIN 1 TABLET PO SCH (08:56)
[2019-04-03] MEDS: FOLIC ACID 1 MG TABLET PO SCH (08:56)
[2019-04-03] MEDS: APIXABAN 5 MG TABLET PO SCH ×2 (08:56→21:06)
[2019-04-03] MEDS: LINEZOLID 600 MG TABLET PO SCH ×2 (08:56→21:06)
[2019-04-03] MEDS ORDERED: FUROSEMIDE 20 MG/2 ML VIAL IV ONE (09:08)
--- NOTE | 2019-04-03 09:36 | Internal Med Progress Note ---
Medical - PN: Subj Patient information: Note initiated : 04/03/19 at 9:32 am Service Date, if different from initiated Date: [] Patient: Shannon Velazquez a 78 y/o F admitted on 04/01/19 for Right I&D of Forearm Abscess and Flexor Radical . Chief Complaint: [] Interval history: Ms. Velazquez is a 78 year old F with known history of atrial fibrillation currently on amiodarone/anticoagulation long history of DJD who underwent right wrist steroid injection around 10 to 12 days ago. Shortly thereafter patient started noticing increasing redness around the little finger and swelling around the wrist. She went to [facility] and was subsequently directed to Dr. Lorenz's office for further evaluation. She was thereafter seen by and with suspicion of tenosynovitis/septic arthritis patient underwent right forearm volar abscess debridement irrigation/tenosynovectomy right wrist and forearm flexor tendons. Postoperatively hospitalist service was consulted for management of medical issues including history of HTN/A. fib/anticoagulation. Patient was seen postop. Doing well. Minimal postoperative pain. Denies headache photophobia. She denies recent fever chills, diarrhea, skin rash or joint pain. Symptoms were progressive in nature with increasing pain swelling around the right wrist along with difficulty using hand with increasing pain on movement. Patient lives with her and 6 miles of [facility] 04/02-patient doing well. Sodium at 123. Pain much improved. White count 15,000. Cultures pending so far. Urine osmolarity pending. Hold spironolactone. Continue wound care as per orthopedics. Continue PT OT/nutrition support 04/03-patient doing well. No overnight events. Improved right hand swelling. Currently in dressing. Minimal drain output. Complains of minimal numbness and tingling. Orthopedics on board. Transition to oral Zyvox per ID for 2 weeks. No fever chills or concerns per staff. White count down to 13,300. Sodium improved to 125. Urine osmolarity appropriately low. Stop IV fluids. Continue PT OT/nutrition support. Discharge planning likely 24 to 48 hours - Constitutional Vitals: Vital Signs Temp Pulse Resp BP Pulse Ox 98.5 F 57 L 20 116/64 98 04/03/19 08:00 04/03/19 08:00 04/03/19 08:00 04/03/19 08:00 04/03/19 08:00 Period Temp Pulse Resp BP Sys/Keenan Pulse Ox Last 24 Hr 98.1 F-98.9 F 57-95 16-20 98-123/58-73 94-98 Intake and Output 04/02/19 04/03/19 04/03/19 21:59 05:59 13:59 Intake Total 940 1500 1358 Output Total 1507 506 450 Balance -567 994 908 Weight 183 lb Intake & Output: Intake & Output 04/02/19 04/03/19 04/03/19 21:59 05:59 13:59 Intake Total 940 1500 1358 Output Total 1507 506 450 Balance -567 994 908 Weight 183 lb Intake: IV 1118 Sodium Chloride 0.9% 1,000 ml @ 1118 50 mls/hr IV .Q20H [facility] Rx#: [id number] Oral 940 1500 240 Output: Drainage 6 Right Hand JERZY Drain 6 Drainage 7 Right Hand JERZY Drain 7 Void Amount 1500 500 450 Other: Meal Dinner Breakfast Percent of Meal Consumed 100% 100% Urine Appearance Clear Clear Clear Urine Color Bright Yellow Dark Yellow Dark Yellow Urine Odor Normal Normal Stool Size Large Stool Color Brown Green Stool Consistency Soft Formed # Voids 1 General appearance: no acute distress Exam: Alert oriented nonlabored breathing No anxiety Right forearm/hand dressing with minimal drain output Medical - PN: Obj Da - Labs CBC & Chem 7: 04/03/19 04:35 04/03/19 04:35 Labs: Abnormal Lab Results 04/03/19 04/03/19 04/02/19 04:35 04:35 19:59 WBC 13.3 H RBC 3.31 L Hgb 10.4 L Hct 31.9 L RDW 23.9 H Plt Count MPV 7.2 L Gran % Lymph % (Auto) Gran # Lymph # (Auto) Oliver # (Auto) Seg Neutrophils % 90 H Lymphocytes % 6 L Myelocytes % 2 H RBC Morphology Abnorm A Anisocytosis 2+ A Ovalocytes 1+ A POC Sodium Sodium 125 L 128 L Potassium POC Chloride Chloride 94 L Carbon Dioxide 21 L Glucose Osmolality Phosphorus 2.5 L GGT 68 H C-Reactive Protein Total Protein 5.2 L Albumin 2.4 L Albumin/Globulin Ratio 0.9 L 04/02/19 04/02/19 04/02/19 15:59 12:15 08:18 WBC RBC Hgb Hct RDW Plt Count MPV Gran % Lymph % (Auto) Gran # Lymph # (Auto) Oliver # (Auto) Seg Neutrophils % Lymphocytes % Myelocytes % RBC Morphology Anisocytosis Ovalocytes POC Sodium Sodium 127 L 130 L 125 L Potassium POC Chloride Chloride Carbon Dioxide Glucose Osmolality Phosphorus GGT C-Reactive Protein Total Protein Albumin Albumin/Globulin Ratio 04/02/19 04/02/19 04/02/19 04:35 04:35 00:05 WBC 15.4 H RBC 3.90 L Hgb Hct RDW 23.7 H Plt Count MPV 7.3 L Gran % Lymph % (Auto) Gran # Lymph # (Auto) Oliver # (Auto) Seg Neutrophils % 95 H Lymphocytes % 4 L Myelocytes % RBC Morphology Abnorm A Anisocytosis 2+ A Ovalocytes POC Sodium Sodium 123 L 121 L Potassium 5.4 H POC Chloride Chloride 91 L Carbon Dioxide 20 L Glucose 122 H Osmolality Phosphorus GGT 87 H C-Reactive Protein 19.3 H Total Protein Albumin 2.7 L Albumin/Globulin Ratio 0.8 L 04/01/19 04/01/19 04/01/19 16:46 16:46 16:46 WBC 15.2 H RBC 3.98 L Hgb Hct RDW 24.1 H Plt Count 455 H MPV 7.3 L Gran % 87.9 H Lymph % (Auto) 5.0 L Gran # 13.3 H Lymph # (Auto) 0.8 L Oliver # (Auto) 1.0 H Seg Neutrophils % Lymphocytes % Myelocytes % RBC Morphology Anisocytosis Ovalocytes POC Sodium 123 L Sodium 122 L Potassium POC Chloride 90 L Chloride 87 L Carbon Dioxide Glucose Osmolality 263 L Phosphorus GGT C-Reactive Protein 14.1 H Total Protein Albumin Albumin/Globulin Ratio Meds: Medications Acetaminophen (Tylenol) 650 mg PO Q4-6HP PRN; Protocol PRN Reason: Per Pain Protocol/Fever > 101 Hydrocodone Bitart/Acetaminophen ([place] 7.5/325mg) 0 tab PO Q4HP PRN; Protocol PRN Reason: Per Pain Protocol Last Admin: 04/03/19 07:07 Dose: 1 tab Documented by: Amiodarone HCl (Cordarone) 100 mg PO HS [facility] Apixaban (Eliquis) 5 mg PO BID [facility] Last Admin: 04/03/19 08:56 Dose: 5 mg Documented by: Atorvastatin Calcium (Lipitor) 20 mg PO DAILY [facility] Last Admin: 04/03/19 08:56 Dose: 20 mg Documented by: Docusate Sodium (Colace) 100 mg PO BID [facility] Last Admin: 04/03/19 08:56 Dose: 100 mg Documented by: Folic Acid (Folic Acid) 1 mg PO DAILY [facility] Last Admin: 04/03/19 08:56 Dose: 1 mg Documented by: Hydromorphone HCl (Dilaudid) 0 mg IV Q2HP PRN; Protocol PRN Reason: Per Pain Protocol Acetaminophen (Ofirmev) 650 mg in 65 mls @ 130 mls/hr IV Q6HP PRN; Protocol PRN Reason: Per Pain Protocol/Fever > 101 Magnesium Sulfate (Magnesium Sulfate) 2 gm in 50 mls @ 50 mls/hr IV UD PRN PRN Reason: MG = or < 1.7 Iron Carb/Multivit/Clerk Stenographer/Folic Acid (Multivitamin W/Minerals) 1 tab PO DAILY [facility] Last Admin: 04/03/19 08:56 Dose: 1 tab Documented by: Ketorolac Tromethamine (Toradol) 15 mg IV BIDP PRN PRN Reason: Per Pain Protocol Last Admin: 04/02/19 19:37 Dose: 15 mg Documented by: Levothyroxine Sodium (Synthroid) 50 mcg PO ACB [facility] Last Admin: 04/03/19 06:57 Dose: 50 mcg Documented by: Linezolid (Zyvox) 600 mg PO Q12 [facility]; Protocol Last Admin: 04/03/19 08:56 Dose: 600 mg Documented by: Lisinopril (Zestril) 20 mg PO QHS [facility] Last Admin: 04/02/19 20:39 Dose: 20 mg Documented by: Melatonin (Melatonin 3mg Tablet) 3 mg PO HSP PRN PRN Reason: Insomnia Omeprazole (Prilosec) 20 mg PO BIDAC [facility] Last Admin: 04/03/19 06:57 Dose: 20 mg Documented by: Ondansetron HCl (Zofran) 4 mg IV Q4-6HP PRN; Protocol PRN Reason: Nausea And Vomiting Polyethylene Glycol (Miralax) 17 gm PO DAILYP PRN PRN Reason: Constipation Potassium Chloride (Klor-Con) 40 meq PO DAILYP PRN PRN Reason: K+ < 3.5 Pramipexole Dihydrochloride (Mirapex) 0.5 mg PO HS [facility] Last Admin: 04/02/19 20:39 Dose: 0.5 mg Documented by: Senna/Docusate Sodium (Senna Plus Tablet) 1 tab PO HS [facility] Last Admin: 04/02/19 20:39 Dose: 1 tab Documented by: Sodium Chloride (Saline Flush) 10 ml IV Q8 [facility] Last Admin: 04/03/19 04:42 Dose: Not Given Documented by: Throat Lozenges (Cepacol) 1 lozenge PO PRN PRN PRN Reason: Sore Throat Medical - PN: A/P - Time Spent With Patient Total time spent is greater than 50% in coordination of care (as documented) at patient's floor/unit and/or counseling patient: 15 - 24 minutes (1) Sepsis Status: Acute Assessment and plan: * Sepsis secondary to tenosynovitis WBC downtrending from 15->13,000. * Septic tenosynovitis status post Irrigation and debridement . On Zyvox per ID * Hyponatremia-125. Likely secondary spironolactone. On hold * Hypertension continue lisinopril. 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
--- NOTE | 2019-04-03 15:01 | Orthopedic Progress Note ---
Subjective Patient information: Note initiated : 04/03/19 at 2:59 pm Service Date, if different from initiated Date: [] Patient: Shannon Velazquez 78 y/o F admitted on 04/01/19 for Right I&D of Forearm Abscess and Flexor Radical . Chief Complaint: [] Principal diagnosis: Right Forearm Abscess, Right Forearm Suppurative Flexor Tenosynovitis Objective Vital signs: Vital Signs Temp Pulse Pulse Resp BP Pulse Ox 04/03/19 12:00 98.7 F 60 20 119/67 97 04/03/19 08:00 98.5 F 57 L 20 116/64 98 04/03/19 07:08 68 16 97 04/03/19 03:40 98.1 F 67 20 117/67 98 04/02/19 23:09 98.2 F 65 18 98/58 96 04/02/19 19:10 98.1 F 80 95 H 16 110/62 95 04/02/19 15:29 98.9 F 67 16 112/65 95 Intake and Output 04/03/19 04/03/19 04/03/19 05:59 13:59 21:59 Intake Total 1500 2398 Output Total 506 1850 Balance 994 548 Intake: IV 1118 Sodium Chloride 0.9% 1,000 ml @ 1118 50 mls/hr IV .Q20H [facility] Rx#: [id number] Oral 1500 1280 Output: Drainage 6 Right Hand JERZY Drain 6 Void Amount 500 1850 Other: Meal Lunch Percent of Meal Consumed 100% Feeding Ability Independent Urine Appearance Clear Clear Urine Color Dark Yellow Bright Yellow Urine Odor Normal Intake & Output: Intake & Output 04/03/19 04/03/19 04/03/19 05:59 13:59 21:59 Intake Total 1500 2398 Output Total 506 1850 Balance 994 548 Intake: IV 1118 Sodium Chloride 0.9% 1,000 ml @ 1118 50 mls/hr IV .Q20H [facility] Rx#: [id number] Oral 1500 1280 Output: Drainage 6 Right Hand JERZY Drain 6 Void Amount 500 1850 Other: Meal Lunch Percent of Meal Consumed 100% Feeding Ability Independent Urine Appearance Clear Clear Urine Color Dark Yellow Bright Yellow Urine Odor Normal Dressing: Yes clean, Yes dry, Yes intact, Yes splint in place Weight bearing status: full Neurological exam IM: Yes alert, Yes neurovascular intact - Labs CBC & BMP: 04/03/19 04:35 04/03/19 04:35 Labs: 04/03/19 04/02/19 04/01/19 04:35 04:35 16:46 Hgb 10.4 L 12.3 12.4 Hct 31.9 L 37.9 38.5 Assessment and Plan - Narrative A/P Narrative: Assessment: The patient is POD#2 s/p I&D right volar forearm abscess and flexor synovectomy doing well, good pain control. Plan: 1. Continue IV antibiotics as per Hospitalist 2. Continue JERZY drain management 3. Up as tolerated 4. Plan on JERZY drain removal 04/04/19 5. D/C planning for 04/04/19
[2019-04-03] MEDS: KETOROLAC 15 MG/ML VIAL IV PRN (17:00)
[2019-04-03] MEDS ORDERED: AMIODARONE HCL 200 MG TABLET PO SCH (21:00)
[2019-04-03] MEDS: LISINOPRIL 20 MG TABLET PO SCH (21:06)
[2019-04-03] MEDS: PRAMIPEXOLE 0.25 MG TABLET PO SCH (21:06)
[2019-04-03] MEDS: SENNOSIDES/DOCUSATE SODIUM 1 TAB TABLET PO SCH (21:07)
[2019-04-04] MEDS: HYDROCODONE/APAP 7.5/325MG TABLET PO PRN ×3 (03:08→12:24)
[2019-04-04 05:30] LABS: Hemoglobin 10.7 g/dL (12.0-15.0); Mean Cell Volume 97.3 fL (80.0-100.0); Mean Corpuscular HGB Conc 32.5 g/dL (31.0-36.0); Mean Platelet Volume 7.1 fL (7.4-10.4); Platelet Count 448 K/mcL (140-440); RBC 3.39 M/mcL (4.00-5.20); Red Cell Distribution Width 23.3 % (11.5-14.5); WBC 8.6 K/mcL (4.5-11.0)
[2019-04-04] MEDS: 0.9 % SODIUM CHLORIDE 10 ML SYRINGE IV SCH ×3 (06:01→13:04)
[2019-04-04 06:06] LABS: ALT/SGPT 15 U/l (0-40); AST/SGOT 13 U/l (0-37); Albumin 2.5 gm/dL (3.2-5.2); Alkaline Phosphatase 73 U/L (39-117); Bilirubin,Direct < 0.2 mg/dL (0.0-0.3); Bilirubin,Total 0.2 mg/dL (0.0-1.0); Blood Urea Nitrogen 21 mg/dl (8-23); Calcium 9.2 mg/dl (8.6-10.4); Carbon Dioxide 23 mmol/L (22-30); Chloride 98 mmol/L (96-108); Globulin 2.6 gm/dL (2.2-3.7); Glomerular Filtration Rate 84; Glucose 84 mg/dL (70-105); Lactate Dehydrogenase 118 U/L (94-250); Phosphorous 2.6 mg/dL (2.7-4.5); Triglycerides 71 mg/dl (<150); Uric Acid 3.7 mg/dL (2.5-8.0)
[2019-04-04 06:29] LABS: Anisocytosis 2+ (NONE SEEN); Eosinophils % (Manual) 2 % (0-7); Lymphocytes % 22 % (15-49); Monocytes % (Manual) 8 % (1-12); Ovalocytes 1+ (NONE SEEN); Platelet Estimate INCREASED (NORMAL); RBC Morphology ABNORM (NORMAL); Segmented Neutrophils % 68 % (38-78)
[2019-04-04] MEDS: LEVOTHYROXINE 50 MCG TABLET PO SCH (07:33)
[2019-04-04] MEDS: OMEPRAZOLE 20 MG CAPSULE PO SCH (07:33)
[2019-04-04] MEDS: APIXABAN 5 MG TABLET PO SCH (08:38)
[2019-04-04] MEDS: ATORVASTATIN 20 MG TABLET PO SCH (08:38)
[2019-04-04] MEDS: FOLIC ACID 1 MG TABLET PO SCH (08:39)
[2019-04-04] MEDS: DOCUSATE SODIUM 100 MG CAPSULE PO SCH (08:39)
[2019-04-04] MEDS: MULTIVIT,THER IRON,CA,FA & MIN 1 TABLET PO SCH (08:39)
[2019-04-04] MEDS: LINEZOLID 600 MG TABLET PO SCH (08:39)
--- NOTE | 2019-04-04 11:51 | Orthopedic Progress Note ---
Subjective Patient information: Note initiated : 04/04/19 at 11:49 am Service Date, if different from initiated Date: [] Patient: Shannon Velazquez 78 y/o F admitted on 04/01/19 for Right I&D of Forearm Abscess and Flexor Radical . Chief Complaint: [] Principal diagnosis: Right Forearm Abscess, Right Forearm Suppurative Flexor Tenosynovitis Interval history: POD#3 s/p I&D right forearm abscess and flexor tendons doing well, good pain control. No fevers or chills, taking po well Objective Vital signs: Vital Signs Temp Pulse Pulse Resp BP Pulse Ox 04/04/19 07:37 97.8 F 67 95 H 18 114/68 95 04/04/19 03:54 98.5 F 61 16 112/67 97 04/03/19 23:07 97.4 F 70 18 107/63 97 04/03/19 20:51 96 04/03/19 19:42 98.9 F 76 16 122/62 96 04/03/19 15:40 98.7 F 72 18 102/62 97 04/03/19 12:00 98.7 F 60 20 119/67 97 Intake and Output 04/03/19 04/04/19 04/04/19 21:59 05:59 13:59 Intake Total 1810 800 360 Output Total 4628 787 1954 Balance 460 0 -1390 Intake: Oral 1810 800 360 Output: Void Amount 0090 526 2987 Other: Meal Dinner Breakfast Percent of Meal Consumed 100% 100% Feeding Ability Assist with Tray Set Up Independent Urine Appearance Clear Clear Urine Color Bright Yellow Pale Urine Odor Normal Weight 181 lb 11.2 oz Intake & Output: Intake & Output 04/03/19 04/04/19 04/04/19 21:59 05:59 13:59 Intake Total 1810 800 360 Output Total 9010 429 7519 Balance 460 0 -1390 Weight 181 lb 11.2 oz Intake: Oral 1810 800 360 Output: Void Amount 8126 448 1438 Other: Meal Dinner Breakfast Percent of Meal Consumed 100% 100% Feeding Ability Assist with Tray Set Up Independent Urine Appearance Clear Clear Urine Color Bright Yellow Pale Urine Odor Normal Dressing: Yes clean, Yes dry, Yes intact, Yes splint in place Weight bearing status: full Neurological exam IM: Yes alert, Yes oriented X3, Yes motor sensory intact, Yes neurovascular intact - Labs CBC & BMP: 04/04/19 04:30 04/04/19 04:30 Labs: 04/04/19 04/03/19 04/02/19 04:30 04:35 04:35 Hgb 10.7 L 10.4 L 12.3 Hct 33.0 L 31.9 L 37.9 04/01/19 16:46 Hgb 12.4 Hct 38.5 Assessment and Plan - Narrative A/P Narrative: Assessment: The patient is POD#3 s/p I&D right volar forearm abscess and flexor synovectomy doing well, good pain control. Plan: 1. D/C JERYZ drain 2. Continue antibiotic regimen as per Infectious Disease 3. Okay to D/C home as per Hospitalist
--- NOTE | 2019-04-04 11:58 | Discharge Summary ---
Ortho Discharge Plan - General - Patient Instructions Diet: Regular Diet Activity: activity as tolerated Dressing Care: Cover dressing in shower Patient Education: Incision and Drainage (DC) Additional Instructions: Leave dressing in place until seen in the physician's office. Elevation will help with pain and swelling. May shower. Cover the dressing while showering. Call your physician for any question/concerns, pain not relieved by medication. [facility]'s phone ([phone]) is answered 24 hours/7 days a week. If you take any narcotic pain medication, take an over the counter stool softener/laxative to avoid constipation. - Follow Up Plan Follow Up Appointments: Shayan Branham PA-C [Physician Digital Court Reporter] - 04/07/19 3:20 pm (please check in at 3:20 pm for a 3:40 pm appointment.) Disposition: Home, Self-Care Care Plan Goals: This discharge packet is provided to you to help keep you informed about your care. We want to ensure you get everything you need when you go home. You will also be receiving a call from us in a few days to follow up with you and see how you are doing since your discharge. This gives us a chance to listen to any concerns you maybe experiencing since you were discharged or any additional needs you may have, as well as providing us feedback on your care experience. We strive to always provide excellent care and thank you for your feedback and for choosing [facility]. Prognosis: Good Rehab Potential: Good I certify that the patient requires SNF services: No Overall status at discharge: patient is back to baseline - Orders For Discharge Prescriptions: Hydrocodone/APAP 7.5/325Mg [[place] 7.5-325Mg] 1 - 2 tab PO Q4-6HP PRN #65 tab PRN Reason: Pain
--- NOTE | 2019-04-04 13:43 | Discharge Summary ---
Medical - DS: Prov Patient information: Note initiated : 04/04/19 at 1:40 pm Service Date, if different from initiated Date: [] Patient: Shannon Velazquez 78 y/o F admitted on 04/01/19 for Right I&D of Forearm Abscess and Flexor Radical . Chief Complaint: [] Date of admission: 04/01/19 19:45 Discharge date: 04/04/19 Primary care physician: Annette Moya MD Consults: 04/01/19 18:47 Consult to Physician [CONS] Routine Comment: Post-Op Medical Care Consulting Provider: Geremias Garcia Reason For Exam: Physician to Consult 04/02/19 11:00 Consult to Physician [CONS] Routine Comment: Consulting Provider: Tucker Hawkins Reason For Exam: Physician to Consult Medical - DS: Meds - Discharge Medications Prescriptions: Hydrocodone/APAP 7.5/325Mg [Osyka 7.5-325Mg] 1 - 2 tab PO Q4-6HP PRN #65 tab PRN Reason: Pain Prescription Printed Linezolid [Zyvox] 600 mg PO Q12 #28 tab Transmission Status: Pending to [address] Active and Home Medications: Home Medications Amiodarone HCl [Cordarone] 100 mg PO HS 04/01/19 [History Confirmed 04/02/19 Last Taken Unknown] Apixaban [Eliquis] 5 mg PO BID 04/01/19 [History Confirmed 04/01/19 Last Taken 04/01/19] Atorvastatin [Lipitor] 20 mg PO DAILY 04/01/19 [History Confirmed 04/01/19 Last Taken Unknown] Folic Acid 1 mg PO DAILY 04/01/19 [History Confirmed 04/01/19 Last Taken Unknown] HYDROcodone/APAP 5/325MG [Osyka 5-325Mg] 1 - 2 tab PO Q6HP PRN 04/01/19 [History Confirmed 04/01/19 Last Taken Unknown] Hydrocodone/APAP 7.5/325Mg [Osyka 7.5-325Mg] 1 - 2 tab PO Q4-6HP PRN 04/01/19 [History Confirmed 04/01/19 Last Taken 04/01/19 13:00] Levothyroxine [Synthroid] 50 mcg PO DAILY 04/01/19 [History Confirmed 04/01/19 Last Taken 04/01/19] Lisinopril [Zestril] 20 mg PO QHS 04/01/19 [History Confirmed 04/01/19 Last Taken 03/31/19] Methotrexate Sodium [Methotrexate] 20 mg PO WEEKLY 04/01/19 [History Confirmed 04/01/19 Last Taken Unknown] Omeprazole 20 mg PO BID 04/01/19 [History Confirmed 04/01/19 Last Taken 04/01/19] Pramipexole [Mirapex] 0.5 mg PO HS 04/01/19 [History Confirmed 04/01/19 Last Taken Unknown] Spironolactone [Aldactone] 25 mg PO DAILY 04/01/19 [History Confirmed 04/01/19 Last Taken Unknown] methylPREDNISolone [Medrol] 4 mg PO DAILY 04/01/19 [History Confirmed 04/01/19 Last Taken Unknown] Hydrocodone/APAP 7.5/325Mg [Osyka 7.5-325Mg] 1 - 2 tab PO Q4-6HP PRN #65 tab 04/04/19 [Rx Last Taken Unknown] Linezolid [Zyvox] 600 mg PO Q12 #28 tab 04/04/19 [Rx Last Taken Unknown] Medical - DS: Hosp Hospital Course: Discharge diagnosis * Sepsis secondary to tenosynovitis [place] 10035->8,000. Clinically resolved * Septic tenosynovitis status post Irrigation and debridement . Continue Zyvox for additional 14 days. Discharging as per orthopedic recommendation * Hyponatremia-improved from 122-> 129. Likely secondary spironolactone. * Hypertension continue lisinopril. At goal * Hypothyroidism continue thyroxine * Pain management on as needed opioid * Atrial fibrillation continue amiodarone/apixaban for CVA prophylaxis * Hyperlipidemia's on statin * Restless leg syndrome continue pramipexole * GERD continue PPI * Chorioretinopathy on methotrexate at home , restart in 2 week Brief hospital course Ms. Velazquez is a 78 year old F with known history of atrial fibrillation currently on amiodarone/anticoagulation long history of DJD who underwent right wrist steroid injection around 10 to 12 days ago. Shortly thereafter patient started noticing increasing redness around the little finger and swelling around the wrist. She went to [facility] and was subsequently directed to Dr. Lorenz's office for further evaluation. She was thereafter seen by and with suspicion of tenosynovitis/septic arthritis patient underwent right forearm volar abscess debridement irrigation/tenosynovectomy right wrist and forearm flexor tendons. Postoperatively hospitalist service was consulted for management of medical issues including history of HTN/A. fib/anticoagulation. Patient was seen postop. Doing well. Minimal postoperative pain. Denies headache photophobia. She denies recent fever chills, diarrhea, skin rash or joint pain. Symptoms were progressive in nature with increasing pain swelling around the right wrist along with difficulty using hand with increasing pain on movement. Patient lives with her and 6 miles of [facility] 04/02-patient doing well. Sodium at 123. Pain much improved. White count 15,000. Cultures pending so far. Urine osmolarity pending. Hold spironolactone. Continue wound care as per orthopedics. Continue PT OT/nutrition support 04/03-patient doing well. No overnight events. Improved right hand swelling. Currently in dressing. Minimal drain output. Complains of minimal numbness and tingling. Orthopedics on board. Transition to oral Zyvox per ID for 2 weeks. No fever chills or concerns per staff. White count down to 13,300. Sodium improved to 125. Urine osmolarity appropriately low. Stop IV fluids. Continue PT OT/nutrition support. Discharge planning likely 24 to 48 hours 04/04-patient doing well. Status post dressing change/drain removal by orthopedics. Discharging as per recommendation of ID on 14 days Zyvox. Continue follow-up with PCP/outpatient orthopedics. No overnight fever chills. Feels ready for discharge. Discharge diagnosis: . - Time Spent with Patient Total time spent providing and/or coordinating discharge services: Greater than 30 minutes Medical - DS: Exam - Constitutional Vitals: Vital Signs Temp Pulse Pulse Resp BP Pulse Ox 04/04/19 12:00 98.3 F 83 96 H 18 116/66 96 04/04/19 07:37 97.8 F 67 95 H 18 114/68 95 04/04/19 03:54 98.5 F 61 16 112/67 97 04/03/19 23:07 97.4 F 70 18 107/63 97 04/03/19 20:51 96 04/03/19 19:42 98.9 F 76 16 122/62 96 04/03/19 15:40 98.7 F 72 18 102/62 97 Intake and Output 04/03/19 04/04/19 04/04/19 21:59 05:59 13:59 Intake Total 1810 800 360 Output Total 7031 072 7313 Balance 460 0 -1390 Intake: Oral 1810 800 360 Output: Void Amount [id number] Other: Meal Dinner Breakfast Percent of Meal Consumed 100% 100% Feeding Ability Assist with Tray Set Up Independent Urine Appearance Clear Clear Urine Color Bright Yellow Pale Urine Odor Normal Weight 181 lb 11.2 oz Medical - DS: Data Labs on day of discharge: Labs from last 24 hours 04/04/19 04/04/19 04:30 04:30 WBC 8.6 RBC 3.39 L Hgb 10.7 L Hct 33.0 L MCV 97.3 MCH 31.6 MCHC 32.5 RDW 23.3 H Plt Count 448 H MPV 7.1 L Total Counted 100 Seg Neutrophils % 68 Band Neutrophils % Not Reportable Lymphocytes % 22 Monocytes % (Manual) 8 Eosinophils % (Manual) 2 Platelet Estimate Increased RBC Morphology Abnorm A Anisocytosis 2+ A Ovalocytes 1+ A Sodium 129 L Potassium 5.0 Chloride 98 Carbon Dioxide 23 Anion Gap 8.0 BUN 21 Creatinine 0.7 GFR Calculation 84 Glucose 84 Uric Acid 3.7 Calcium 9.2 Phosphorus 2.6 L Magnesium 1.9 Total Bilirubin 0.2 Direct Bilirubin < 0.2 GGT 63 H AST 13 ALT 15 Alkaline Phosphatase 73 Lactate Dehydrogenase 118 Total Protein 5.1 L Albumin 2.5 L Globulin 2.6 Albumin/Globulin Ratio 1.0 Triglycerides 71 Medical - DS: A/P - Patient/Caregiver Discharge Instructions Activity: increase activity as tolerated Diet: Regular Diet Additional Instructions: Leave dressing in place until seen in the physician's office. Elevation will help with pain and swelling. May shower. Cover the dressing while showering. Call your physician for any question/concerns, pain not relieved by medication. [facility] phone ([phone]) is answered 24 hours/7 days a week. If you take any narcotic pain medication, take an over the counter stool softener/laxative to avoid constipation. Follow-up PCP in 5 to 7 days continue oral Zyvox for 14 days Follow-up with orthopedics as advised above Prescriptions: Hydrocodone/APAP 7.5/325Mg [Osyka 7.5-325Mg] 1 - 2 tab PO Q4-6HP PRN #65 tab PRN Reason: Pain Prescription Printed Linezolid [Zyvox] 600 mg PO Q12 #28 tab Transmission Status: Pending to [id number] - Follow up Plan Follow up with: Tucker Hawkins MD [Physician] - (Please call on Sunday to schedule an appointment for 2 weeks from now. If they haven't already contacted you.) Shayan Branham PA-C [Physician Offset Press Operator] - 04/07/19 3:20 pm (please check in at 3:20 pm for a 3:40 pm appointment.) Disposition: Home, Self-Care Care Plan Goals: This discharge packet is provided to you to help keep you informed about your care. We want to ensure you get everything you need when you go home. You will also be receiving a call from us in a few days to follow up with you and see how you are doing since your discharge. This gives us a chance to listen to any concerns you maybe experiencing since you were discharged or any additional needs you may have, as well as providing us feedback on your care experience. We strive to always provide excellent care and thank you for your feedback and for choosing [facility]. Prognosis: Good Rehab Potential: Fair I certify that the patient requires SNF services: No Overall status at discharge: patient is progressing back to baseline Medical - DS: Qual - VTE Deep Vein Thrombosis/Pulmonary Embolism Present on Admission: No
--- NOTE | 2019-04-04 17:54 | Infectious Disease Prog Note ---
Subjective Patient information: Note initiated : 04/04/19 at 5:52 pm Service Date, if different from initiated Date: [] Patient: Shannon Velazquez 78 y/o F admitted on 04/01/19 for Right I&D of Forearm Abscess and Flexor Radical . Chief Complaint: [] Principal diagnosis: Right Forearm Abscess, Right Forearm Suppurative Flexor Tenosynovitis Interval history: Pt doing well, tolerating Linezolid without any problems. No fever/chills/n/v/diarrhea. Discussed f/u in ID clinic in 2 weeks. Objective Objective Narrative: ao x 3, in nad chest cta s1 s2 normal bs ++, nttd the right hand fingers are swollen with pitting edema. No discoloration, or pain with movements. The surgical wound is under dressing. - Vital Signs Vital signs: Vital Signs Temp Pulse Pulse Resp BP Pulse Ox 04/04/19 12:00 36.8 C 83 96 H 18 116/66 96 04/04/19 07:37 36.6 C 67 95 H 18 114/68 95 04/04/19 03:54 36.9 C 61 16 112/67 97 04/03/19 23:07 36.3 C 70 18 107/63 97 04/03/19 20:51 96 04/03/19 19:42 37.2 C 76 16 122/62 96 Intake and Output 04/04/19 04/04/19 04/04/19 05:59 13:59 21:59 Intake Total 800 360 Output Total 800 1750 Balance 0 -1390 Intake: Oral 800 360 Output: Void Amount 800 1750 Other: Meal Breakfast Percent of Meal Consumed 100% Feeding Ability Independent Urine Appearance Clear Urine Color Pale Intake & Output: Intake & Output 04/04/19 04/04/19 04/04/19 05:59 13:59 21:59 Intake Total 800 360 Output Total 800 1750 Balance 0 -1390 Intake: Oral 800 360 Output: Void Amount 800 1750 Other: Meal Breakfast Percent of Meal Consumed 100% Feeding Ability Independent Urine Appearance Clear Urine Color Pale - Lab 04/04/19 04:30 04/04/19 04:30 Most recent lab results Calcium 9.2 mg/dl (8.6-10.4) 04/04/19 04:30 Phosphorus 2.6 mg/dL (2.7-4.5) L 04/04/19 04:30 Magnesium 1.9 mg/dL (1.6-2.5) 04/04/19 04:30 Microbiology 04/02/19 17:45 Nose MRSA (PCR) - Final 04/01/19 18:12 Wrist - Right Gram Stain - Final 04/01/19 18:12 Wrist - Right Wound Culture - Final Assessment and Plan - Narrative A/P Narrative: A: 1. Rt forearm abscess with extension to flexor tendons causing tenosynovitis: POD 3 after "Debridement and irrigation of the right volar forearm and wrist abscess, Debridement and irrigation with tenosynovectomy of the right wrist and forearm flexor tendons". - wound Cx growing MSSA - s/p 2 days of IV Vanc and now on Linezolid - no sepsis - clinically improving Recommendations: - Continue PO Linezolid 600 mg PO q12 hrs until 04/18/19 - ID Clinic f/u scheduled for 04/17/19 - wound care per Dr. Lucien Hawkins MD Infectious diseases
== END 2019-04-04 14:30 | disposition home or self-care (01) | DRG 854 ==
LOC: SUR 15:54 → MEDSUR 19:45
PROVIDERS: ADMIT Orthopaedic Surgery Hand Surgery; ATTEND Orthopaedic Surgery Hand Surgery